=== PATIENT | male | born 1955 | race Caucasian/White ===

== ENCOUNTER 2016-11-28 00:25 | Inpatient (IN) | payer BC ==
[~2016-11-28] VITALS: Ht 177.8 cm; Wt 141.7 kg
[~2016-11-28 00:25] MED LIST: CIPR500T94 PO; OLME1TAB33 PO; TAMS0.4C97 PO
[2016-11-28 03:00] VITALS: BP 117/75
[2016-11-28 03:29] LABS: BACTERIA,URINE FEW /HPF (0-FEW); BILIRUBIN,URINE NEGATIVE (NEG); GLUCOSE,URINE NEGATIVE (NEG); NITRITE,URINE NEGATIVE (NEG); PH,URINE 5.5; PROTEIN,URINE NEGATIVE (NEG-TRACE); SQUAMOUS EPITHELIAL CELL,UR FEW /LPF; WBC,URINE TNTC /HPF (0-4)
[2016-11-28] MEDS ORDERED: TAMS0.4C97 PO (03:46)
[2016-11-28] MEDS ORDERED: POTASSIUM CHLO10 MEQ PO (03:46)
[2016-11-28] MEDS ORDERED: SAW/1TAB2 PO (03:46)
[2016-11-28] MEDS ORDERED: ALLO100T PO (03:46)
[2016-11-28] MEDS ORDERED: METO5TAB4 PO (03:46)
[2016-11-28] MEDS ORDERED: MULT1TAB52 PO (03:46)
[2016-11-28] MEDS ORDERED: FURO40TA4 PO (03:46)
[2016-11-28] MEDS: AMINO AC 3%/ELECTROLYTE/GLYCER 1,000 ML IV SCH (04:05)
[2016-11-28 07:00] VITALS: BP 116/77
[2016-11-28 07:12] LABS: BASO % 0 % (0-3); EOS % 1 % (0-3); HEMATOCRIT 35.9 % (39.0-53.0); HEMOGLOBIN 11.9 g/dL (13.0-17.5); LYMPH # 1.4 x10^3/uL (1.0-4.8); LYMPH % 14 % (24-48); MEAN CORPUSCULAR HEMOGLOBIN 28 pg (25-35); MEAN CORPUSCULAR HGB CONC 33 g/dL (31-37); MEAN CORPUSCULAR VOLUME 84 fL (79-100); MONO % 11 % (0-9); NEUT % 74 % (31-73); PLATELET COUNT 62 x10^3/uL (140-400); RED BLOOD COUNT 4.28 x10^6/uL (4.30-5.70); RED CELL DISTRIBUTION WIDTH 18.4 % (11.5-14.5); WHITE BLOOD COUNT 10.6 x10^3/uL (4.0-11.0)
[2016-11-28 07:25] LABS: INR 2.3 (0.8-1.1); PROTHROMBIN TIME PATIENT 24.1 SEC (11.7-14.0)
[2016-11-28 07:34] LABS: ALBUMIN 2.5 g/dL (3.4-5.0); CALCIUM 8.5 mg/dL (8.5-10.1); CREATININE 2.3 mg/dL (0.7-1.3); DIRECT BILIRUBIN 6.1 mg/dL (0.0-0.2); GFR 29.1; POTASSIUM 3.1 mmol/L (3.5-5.1)
[2016-11-28 08:00] LABS: ALBUMIN/GLOBULIN RATIO 0.6 (1.0-1.7); TOTAL PROTEIN 6.7 g/dL (6.4-8.2)
--- NOTE | 2016-11-28 09:40 | PDOC1 ---
History and Physical Social History Smoke: No ALCOHOL: none Current Medications Current Medications Current Medications Medications (Trade) Dose Ordered Sig/Joann Start Time Stop Time Status Last Admin Dose Admin Amino Acids/ Glycerin/ Electrolytes 1,000 ml @ 50 mls/hr Q20H 11/28/16 03:30 11/28/16 04:05 50 MLS/HR Allergies Allergies Allergies Coded Allergies Type Severity Reaction Last Updated Verified No Known Drug Allergies 02/15/16 No ROS Review of System CONSTITUTIONAL: No fever or chills EYES: No recent changes SKIN: jaundice, itching. CARDIOVASCULAR: No chest pain, syncope, palpitations, or edema RESPIRATORY: No SOB or cough GASTROINTESTINAL: abdominal distension NEUROLOGICAL: No headaches or weakness ENDOCRINE: No cold or heat intolerance GENITOURINARY: No urgency or frequency of urination MUSCULOSKELETAL: No back pain or joint pain LYMPHATICS: No enlarged lymph nodes PSYCHIATRIC: No anxiety or depression Physical Exam Physical Exam GEN.: No apparent distress. Alert and oriented. HEENT: Head is normocephalic, atraumatic, Icterus NECK: Supple. no JVD LUNGS: Clear to auscultation. HEART: RRR, S1, S2 present. Peripheral pulses intact ABDOMEN: Soft, nontender. Positive bowel sounds. distended tense EXTREMITIES: Without any cyanosis. +3 edema NEUROLOGIC: Normal speech, normal tone PSYCHIATRIC: Normal affect, normal mood. SKIN: jaundice, yellowish discoloration Vitals Vitals Vital Signs Date Time Temp Pulse Resp B/P (MAP) Pulse Ox O2 Delivery O2 Flow Rate FiO2 11/28/16 04:59 Room Air 11/28/16 03:00 97.0 98 19 117/75 (89) 94 97.0 Labs Labs Laboratory Tests Test 11/28/16 02:50 11/28/16 06:40 Urine Collection Type Unknown Urine Color Kalani Urine Clarity Clear Urine pH 5.5 Urine Specific [place] 1.010 Urine Protein Negative mg/dL (NEG-TRACE) Urine Glucose (UA) Negative mg/dL (NEG) Urine Ketones (Stick) Negative mg/dL (NEG) Urine Blood Small (NEG) Urine Nitrite Negative (NEG) Urine Bilirubin Negative (NEG) Urine Urobilinogen Dipstick 1.0 mg/dL (0.2 mg/dL) Urine Leukocyte Esterase Moderate (NEG) Urine RBC 11-20 /HPF (0-2) Urine WBC Tntc /HPF (0-4) Urine Squamous Epithelial Cells Few /LPF Urine Bacteria Few /HPF (0-FEW) Urine Hyaline Casts Many /HPF Urine Mucus Slight /LPF White Blood Count 10.6 x10^3/uL (4.0-11.0) Red Blood Count 4.28 x10^6/uL (4.30-5.70) Hemoglobin 11.9 g/dL (13.0-17.5) Hematocrit 35.9 % (39.0-53.0) Mean Corpuscular Volume 84 fL (79-100) Mean Corpuscular Hemoglobin 28 pg (25-35) Mean Corpuscular Hemoglobin Concent 33 g/dL (31-37) Red Cell Distribution Width 18.4 % (11.5-14.5) Platelet Count 62 x10^3/uL (140-400) Neutrophils (%) (Auto) 74 % (31-73) Lymphocytes (%) (Auto) 14 % (24-48) Monocytes (%) (Auto) 11 % (0-9) Eosinophils (%) (Auto) 1 % (0-3) Basophils (%) (Auto) 0 % (0-3) Neutrophils # (Auto) 7.8 x10^3uL (1.8-7.7) Lymphocytes # (Auto) 1.4 x10^3/uL (1.0-4.8) Monocytes # (Auto) 1.2 x10^3/uL (0.0-1.1) Eosinophils # (Auto) 0.1 x10^3/uL (0.0-0.7) Basophils # (Auto) 0.0 x10^3/uL (0.0-0.2) Prothrombin Time 24.1 SEC (11.7-14.0) Prothromb Time International Ratio 2.3 (0.8-1.1) Activated Partial Thromboplast Time 41 SEC (24-38) Sodium Level 128 mmol/L (136-145) Potassium Level 3.1 mmol/L (3.5-5.1) Chloride Level 91 mmol/L (98-107) Carbon Dioxide Level 24 mmol/L (21-32) Anion Gap 13 (6-14) Blood Urea Nitrogen 58 mg/dL (8-26) Creatinine 2.3 mg/dL (0.7-1.3) Estimated GFR (Cockcroft-Gault) 29.1 BUN/Creatinine Ratio 25 (6-20) Glucose Level 93 mg/dL (70-99) Calcium Level 8.5 mg/dL (8.5-10.1) Total Bilirubin 8.0 mg/dL (0.2-1.0) Direct Bilirubin 6.1 mg/dL (0.0-0.2) Aspartate Amino Transf (AST/SGOT) 177 U/L (15-37) Alanine Aminotransferase (ALT/SGPT) 47 U/L (16-63) Alkaline Phosphatase 138 U/L (46-116) Total Protein 6.7 g/dL (6.4-8.2) Albumin 2.5 g/dL (3.4-5.0) Albumin/Globulin Ratio 0.6 (1.0-1.7) Laboratory Tests Test 11/28/16 02:50 11/28/16 06:40 Urine Collection Type Unknown Urine Color Kalani Urine Clarity Clear Urine pH 5.5 Urine Specific [place] 1.010 Urine Protein Negative mg/dL (NEG-TRACE) Urine Glucose (UA) Negative mg/dL (NEG) Urine Ketones (Stick) Negative mg/dL (NEG) Urine Blood Small (NEG) Urine Nitrite Negative (NEG) Urine Bilirubin Negative (NEG) Urine Urobilinogen Dipstick 1.0 mg/dL (0.2 mg/dL) Urine Leukocyte Esterase Moderate (NEG) Urine RBC 11-20 /HPF (0-2) Urine WBC Tntc /HPF (0-4) Urine Squamous Epithelial Cells Few /LPF Urine Bacteria Few /HPF (0-FEW) Urine Hyaline Casts Many /HPF Urine Mucus Slight /LPF White Blood Count 10.6 x10^3/uL (4.0-11.0) Red Blood Count 4.28 x10^6/uL (4.30-5.70) Hemoglobin 11.9 g/dL (13.0-17.5) Hematocrit 35.9 % (39.0-53.0) Mean Corpuscular Volume 84 fL (79-100) Mean Corpuscular Hemoglobin 28 pg (25-35) Mean Corpuscular Hemoglobin Concent 33 g/dL (31-37) Red Cell Distribution Width 18.4 % (11.5-14.5) Platelet Count 62 x10^3/uL (140-400) Neutrophils (%) (Auto) 74 % (31-73) Lymphocytes (%) (Auto) 14 % (24-48) Monocytes (%) (Auto) 11 % (0-9) Eosinophils (%) (Auto) 1 % (0-3) Basophils (%) (Auto) 0 % (0-3) Neutrophils # (Auto) 7.8 x10^3uL (1.8-7.7) Lymphocytes # (Auto) 1.4 x10^3/uL (1.0-4.8) Monocytes # (Auto) 1.2 x10^3/uL (0.0-1.1) Eosinophils # (Auto) 0.1 x10^3/uL (0.0-0.7) Basophils # (Auto) 0.0 x10^3/uL (0.0-0.2) Prothrombin Time 24.1 SEC (11.7-14.0) Prothromb Time International Ratio 2.3 (0.8-1.1) Activated Partial Thromboplast Time 41 SEC (24-38) Sodium Level 128 mmol/L (136-145) Potassium Level 3.1 mmol/L (3.5-5.1) Chloride Level 91 mmol/L (98-107) Carbon Dioxide Level 24 mmol/L (21-32) Anion Gap 13 (6-14) Blood Urea Nitrogen 58 mg/dL (8-26) Creatinine 2.3 mg/dL (0.7-1.3) Estimated GFR (Cockcroft-Gault) 29.1 BUN/Creatinine Ratio 25 (6-20) Glucose Level 93 mg/dL (70-99) Calcium Level 8.5 mg/dL (8.5-10.1) Total Bilirubin 8.0 mg/dL (0.2-1.0) Direct Bilirubin 6.1 mg/dL (0.0-0.2) Aspartate Amino Transf (AST/SGOT) 177 U/L (15-37) Alanine Aminotransferase (ALT/SGPT) 47 U/L (16-63) Alkaline Phosphatase 138 U/L (46-116) Total Protein 6.7 g/dL (6.4-8.2) Albumin 2.5 g/dL (3.4-5.0) Albumin/Globulin Ratio 0.6 (1.0-1.7) VTE Prophylaxis Ordered VTE Prophylaxis Devices: Contraindicated VTE Pharmacological Prophylaxi: Contraindicated PATRICIA CASTAÑEDA MD November 28, 2016 09:40
--- NOTE | 2016-11-28 10:58 | PDOC2 ---
GI CONSULT Reason For Consult: Acute liver failure HPI: HPI: 61 y/o male transferred from [facility] where he was evaluated for jaundice which he noticed yesterday. In 09/2015 had a urologic procedure (Dr. Ayoub) for urethral stricture following TURP several years prior (for BPH), complicated by acute renal failure followed by Dr. Beverly. S/p kidney biopsy @ [facility] (says benign). Also some reports of elevated INR and low platelets. Has been on Lasix for abdominal and BLE swelling w/ SOA. Denies h/o liver issues. Note previous CT A/ P w/o contrast from 01/2016 which showed nodular contour of liver. Current labs as below, bili 8, plt 62, INR 2.3. Denies n/v, reflux/heartburn, dysphagia, diarrhea, constipation, hematochezia, melena, change in appetite. Recalls previous EGDs and colonoscopies in [place] as normal. PMH: PMH: per HPI FH: Family History: No pertinent hx Social History: Smoke: No ALCOHOL: rare (drank some in his 20s and 30s, since then has about a 6 pack of beer monthly) ROS: GEN: Denies fevers, chills, sweats HEENT: Denies blurred vision, sore throat CV: Denies chest pain RESP: +SOA GI: Per HPI : Denies hematuria, dysuria ENDO: +weight gain NEURO: Denies confusion, dizziness MSK: Denies weakness, joint pain/swelling SKIN: +jaundice Vitals: Vitals: Vital Signs Date Time Temp Pulse Resp B/P (MAP) Pulse Ox O2 Delivery O2 Flow Rate FiO2 11/28/16 08:00 Room Air 11/28/16 07:00 97.7 95 20 116/77 (90) 94 97.7 Labs: Labs: Laboratory Tests Test 11/28/16 02:50 11/28/16 06:40 Urine Collection Type Unknown Urine Color Kalani Urine Clarity Clear Urine pH 5.5 Urine Specific [place] 1.010 Urine Protein Negative mg/dL (NEG-TRACE) Urine Glucose (UA) Negative mg/dL (NEG) Urine Ketones (Stick) Negative mg/dL (NEG) Urine Blood Small (NEG) Urine Nitrite Negative (NEG) Urine Bilirubin Negative (NEG) Urine Urobilinogen Dipstick 1.0 mg/dL (0.2 mg/dL) Urine Leukocyte Esterase Moderate (NEG) Urine RBC 11-20 /HPF (0-2) Urine WBC Tntc /HPF (0-4) Urine Squamous Epithelial Cells Few /LPF Urine Bacteria Few /HPF (0-FEW) Urine Hyaline Casts Many /HPF Urine Mucus Slight /LPF White Blood Count 10.6 x10^3/uL (4.0-11.0) Red Blood Count 4.28 x10^6/uL (4.30-5.70) Hemoglobin 11.9 g/dL (13.0-17.5) Hematocrit 35.9 % (39.0-53.0) Mean Corpuscular Volume 84 fL (79-100) Mean Corpuscular Hemoglobin 28 pg (25-35) Mean Corpuscular Hemoglobin Concent 33 g/dL (31-37) Red Cell Distribution Width 18.4 % (11.5-14.5) Platelet Count 62 x10^3/uL (140-400) Neutrophils (%) (Auto) 74 % (31-73) Lymphocytes (%) (Auto) 14 % (24-48) Monocytes (%) (Auto) 11 % (0-9) Eosinophils (%) (Auto) 1 % (0-3) Basophils (%) (Auto) 0 % (0-3) Neutrophils # (Auto) 7.8 x10^3uL (1.8-7.7) Lymphocytes # (Auto) 1.4 x10^3/uL (1.0-4.8) Monocytes # (Auto) 1.2 x10^3/uL (0.0-1.1) Eosinophils # (Auto) 0.1 x10^3/uL (0.0-0.7) Basophils # (Auto) 0.0 x10^3/uL (0.0-0.2) Prothrombin Time 24.1 SEC (11.7-14.0) Prothromb Time International Ratio 2.3 (0.8-1.1) Activated Partial Thromboplast Time 41 SEC (24-38) Sodium Level 128 mmol/L (136-145) Potassium Level 3.1 mmol/L (3.5-5.1) Chloride Level 91 mmol/L (98-107) Carbon Dioxide Level 24 mmol/L (21-32) Anion Gap 13 (6-14) Blood Urea Nitrogen 58 mg/dL (8-26) Creatinine 2.3 mg/dL (0.7-1.3) Estimated GFR (Cockcroft-Gault) 29.1 BUN/Creatinine Ratio 25 (6-20) Glucose Level 93 mg/dL (70-99) Calcium Level 8.5 mg/dL (8.5-10.1) Total Bilirubin 8.0 mg/dL (0.2-1.0) Direct Bilirubin 6.1 mg/dL (0.0-0.2) Aspartate Amino Transf (AST/SGOT) 177 U/L (15-37) Alanine Aminotransferase (ALT/SGPT) 47 U/L (16-63) Alkaline Phosphatase 138 U/L (46-116) Total Protein 6.7 g/dL (6.4-8.2) Albumin 2.5 g/dL (3.4-5.0) Albumin/Globulin Ratio 0.6 (1.0-1.7) Allergies: Coded Allergies: No Known Drug Allergies (Unverified , 02/15/16) Medications: Current Medications Medications (Trade) Dose Ordered Sig/Joann Route PRN Reason Start Time Stop Time Status Last Admin Dose Admin Amino Acids/ Glycerin/ Electrolytes 1,000 ml @ 50 mls/hr Q20H IV 11/28/16 03:30 11/28/16 04:05 Imaging: Imaging: - PE: GEN: NAD HEENT: Atraumatic, PERRL LUNGS: CTAB HEART: RRR ABD: distended/tight, ascites EXTREMITY: BLE 2+ pitting edema SKIN: +jaundice NEURO/PSYCH: A & O 3 A/P: A/P: Jaundice, abd distention, BLE edema -jaundice noticed yesterday, bili 8 as above -h/o elevated INR and low plt, present here as well -abd distention and BLE swelling bothersome since urologic procedure complicated w/ kidney issues in 09/2016, has been on Lasix -previous CT from 01/2016 suggest nodular contour of liver ANTIONE -- Check Hep panel. Will also ask for abd US (r/o obstruction, check ascites) and abd doppler (?portal hypertension). JULIANA RIOS November 28, 2016 10:58
[2016-11-28 11:00] VITALS: BP 118/84
[2016-11-28] MEDS ORDERED: POTASSIUM CHLORIDE 20 MEQ TABLET.ER. PO ONE ×2 (11:30→16:15)
--- NOTE | 2016-11-28 12:21 | HP ---
ADMIT DATE: 11/28/2016 CHIEF COMPLAINT: Weight gain and jaundice. HISTORY OF PRESENT ILLNESS: A 61-year-old male patient with recent history of acute kidney injury who had a prolonged hospitalization at [facility] presented to the hospital directly admitted from primary care doctor's office from jaundice and worsening liver functions. Reportedly, the patient was admitted to the [facility] in early September for hematuria. At that time, he had a urethral stricture and had TURP. Postsurgery, his hospital course was complicated due to acute renal failure. He had a renal biopsy which showed ATN as per primary care doctor. The patient was discharged home and again readmitted to the hospital for worsening liver function tests. He has been admitted to [facility], and workup such as liver ultrasound showed fatty liver disease, and he was sent home with Lasix. However, the patient continued to have lower extremity swellings, abdominal distension, and jaundice. Recently, his liver functions, total bilirubin was 4, but today his bilirubin was 8 with icterus and worsening INR. PAST MEDICAL HISTORY: ATN and elevated liver function test. FAMILY HISTORY: No liver cancers or GI cancers. PERSONAL HISTORY: Occasionally drinks. No smoking, no drug abuse. REVIEW OF SYSTEMS: Please see my electronic H and P. PHYSICAL EXAMINATION: Please see my electronic H and P. ALLERGIES: NKDA. LABORATORY DATA: Hematology: WBC 10.6, hemoglobin 11.9, MCV is 84, platelets 62 and lymphocytes 11. Chemistry: Sodium is 128, potassium is 3.1, chloride is 91, carbon dioxide is 24, anion gap is 13, BUN is 58, creatinine 2.0, GFR is 29, and glucose is 93. Total bilirubin 8.0, direct bilirubin is 6.1. AST is 177, ALT is 47, alkaline phosphatase is 138. Coagulation panel: INR is 2.3, PTT 41. Urine: Protein is negative, ketones negative, nitrites negative, leukocyte esterase moderate, bacteria a few, and hyaline casts many. IMAGING STUDIES: Not done. ASSESSMENT AND PLAN: 1. Elevated liver enzymes, with Cirrhosis POA 2. Jaundice, obstructive pattern. 3. Acute renal failure. 4. Hypokalemia with potassium 3.1. 5. Thrombocytopenia. 6. Coagulopathy likely due to liver disease. PLAN: 1. Continue IV Lasix for now and restrict to volume intake to 1500 mL and repeat CBC and CMP in a.m. 2. I did discuss with Dr. Landers, He will see him. Also consult Gastroenterology, Dr. Lei. 3. I did discuss, primary care doctor. We will update him at DC 4. No DVT prophylaxis due to thrombocytopenia and elevated INR. 5. Prognosis is guarded. Plan explained to the patient's daughter. They agree with current management. 4. Abdominal ultrasound is pending. 5. Home medication reviewed, 6. Intake and out put 7. Physical therapy PATRICIA CASTAÑEDA MD DR: MARSHA/екатерина JOB#: [id number] / [id number] EDGARDO
[2016-11-28] MEDS: metOLazone 2.5 MG TABLET PO SCH ×2 (12:30→16:58)
[2016-11-28] MEDS ORDERED: FUROSEMIDE 40 MG TABLET. PO SCH (12:30)
[2016-11-28] MEDS: TAMSULOSIN 0.4 MG CAP.ER.24H. PO SCH ×2 (12:30→21:30)
[2016-11-28] MEDS: POTASSIUM CHLORIDE 10 MEQ TABLET.ER. PO SCH ×2 (12:30→16:57)
[2016-11-28 15:00] VITALS: BP 90/57
--- NOTE | 2016-11-28 15:35 | RAD ---
Indication: Jaundice. The study is limited by overlying bowel gas and patient body habitus. The pancreas and aorta are obscured. The liver has a nodular contour. The liver parenchyma is heterogeneous. No discrete liver mass is identified. The gallbladder does contain moderate sludge. No gallstones are seen. No wall thickening is identified. The spleen is enlarged at 13 cm. Kidneys are unremarkable. No definite identifiable flow within the portal vein or the IVC is seen at the level of the liver. Thrombosis cannot be entirely excluded. There is moderate ascites present. Impression: Limited study due to patient body habitus and overlying bowel gas. The liver is heterogeneous and nodular, perhaps owing to cirrhosis. No discrete liver mass is identified. There is splenomegaly. In addition, no definite flow could be seen within the portal vein or within the upper IVC. Thrombosis cannot be entirely excluded. CT with contrast would be useful for further evaluation.
[2016-11-28] MEDS: MULTIVITAMIN with MINERAL TABLET. PO SCH (16:57)
[2016-11-28] MEDS: ALLOPURINOL 100 MG TABLET. PO SCH (16:57)
[2016-11-28] MEDS: ALBUMIN HUMAN 25% 200 ML IV SCH (17:00)
[2016-11-28] MEDS: oxyCODONE/APAP 5/325 1 TAB TABLET PO PRN (17:59)
[2016-11-28] MEDS: FUROSEMIDE 20 MG/2 ML VIAL. IVP SCH (18:00)
[2016-11-28 19:00] VITALS: BP 89/61
[2016-11-28 23:00] VITALS: BP 110/70
[2016-11-29] VITALS (8 sets, daily range): BP systolic 92–117; BP diastolic 63–79
[2016-11-29] MEDS: FUROSEMIDE 20 MG/2 ML VIAL. IVP SCH ×4 (00:16→17:41)
[2016-11-29] MEDS: AMINO AC 3%/ELECTROLYTE/GLYCER 1,000 ML IV SCH (00:17)
[2016-11-29] MEDS: oxyCODONE/APAP 5/325 1 TAB TABLET PO PRN ×2 (02:35→12:27)
[2016-11-29] MEDS: ALBUMIN HUMAN 25% 200 ML IV SCH ×2 (03:37→15:30)
[2016-11-29 07:53] LABS: BASO % 0 % (0-3); EOS % 0 % (0-3); HEMOGLOBIN 10.2 g/dL (13.0-17.5); LYMPH # 1.4 x10^3/uL (1.0-4.8); LYMPH % 12 % (24-48); MEAN CORPUSCULAR HEMOGLOBIN 28 pg (25-35); MEAN CORPUSCULAR HGB CONC 34 g/dL (31-37); MEAN CORPUSCULAR VOLUME 83 fL (79-100); MONO % 11 % (0-9); NEUT % 77 % (31-73); PLATELET COUNT 58 x10^3/uL (140-400); RED CELL DISTRIBUTION WIDTH 19.1 % (11.5-14.5); WHITE BLOOD COUNT 11.4 x10^3/uL (4.0-11.0)
[2016-11-29 08:06] LABS: ALBUMIN 3.3 g/dL (3.4-5.0); ALBUMIN/GLOBULIN RATIO 0.9 (1.0-1.7); CALCIUM 8.7 mg/dL (8.5-10.1); CREATININE 2.3 mg/dL (0.7-1.3); GFR 29.1; POTASSIUM 3.6 mmol/L (3.5-5.1); TOTAL BILIRUBIN 9.7 mg/dL (0.2-1.0)
[2016-11-29] MEDS: metOLazone 2.5 MG TABLET PO SCH (08:26)
[2016-11-29] MEDS: ALLOPURINOL 100 MG TABLET. PO SCH (08:30)
[2016-11-29] MEDS: POTASSIUM CHLORIDE 10 MEQ TABLET.ER. PO SCH ×2 (08:30→15:30)
[2016-11-29] MEDS: TAMSULOSIN 0.4 MG CAP.ER.24H. PO SCH ×2 (08:30→20:58)
[2016-11-29] MEDS: MULTIVITAMIN with MINERAL TABLET. PO SCH (08:30)
[2016-11-29 08:34] LABS: TOTAL PROTEIN 6.9 g/dL (6.4-8.2)
--- NOTE | 2016-11-29 10:30 | PDOC ---
G I PROGRESS NOTE Subjective No new complaints. Physical Exam Lungs clear. RRR Abdomen with ascites. Anasarca persists. Review of Relevant I have reviewed the following items rufina (where applicable) has been applied. Labs Laboratory Tests Test 11/28/16 02:50 11/28/16 06:40 11/29/16 07:15 Urine Collection Type Unknown Urine Color Kalani Urine Clarity Clear Urine pH 5.5 Urine Specific [place] 1.010 Urine Protein Negative mg/dL (NEG-TRACE) Urine Glucose (UA) Negative mg/dL (NEG) Urine Ketones (Stick) Negative mg/dL (NEG) Urine Blood Small (NEG) Urine Nitrite Negative (NEG) Urine Bilirubin Negative (NEG) Urine Urobilinogen Dipstick 1.0 mg/dL (0.2 mg/dL) Urine Leukocyte Esterase Moderate (NEG) Urine RBC 11-20 /HPF (0-2) Urine WBC Tntc /HPF (0-4) Urine Squamous Epithelial Cells Few /LPF Urine Bacteria Few /HPF (0-FEW) Urine Hyaline Casts Many /HPF Urine Mucus Slight /LPF White Blood Count 10.6 x10^3/uL (4.0-11.0) 11.4 x10^3/uL (4.0-11.0) Red Blood Count 4.28 x10^6/uL (4.30-5.70) 3.60 x10^6/uL (4.30-5.70) Hemoglobin 11.9 g/dL (13.0-17.5) 10.2 g/dL (13.0-17.5) Hematocrit 35.9 % (39.0-53.0) 30.0 % (39.0-53.0) Mean Corpuscular Volume 84 fL (79-100) 83 fL (79-100) Mean Corpuscular Hemoglobin 28 pg (25-35) 28 pg (25-35) Mean Corpuscular Hemoglobin Concent 33 g/dL (31-37) 34 g/dL (31-37) Red Cell Distribution Width 18.4 % (11.5-14.5) 19.1 % (11.5-14.5) Platelet Count 62 x10^3/uL (140-400) 58 x10^3/uL (140-400) Neutrophils (%) (Auto) 74 % (31-73) 77 % (31-73) Lymphocytes (%) (Auto) 14 % (24-48) 12 % (24-48) Monocytes (%) (Auto) 11 % (0-9) 11 % (0-9) Eosinophils (%) (Auto) 1 % (0-3) 0 % (0-3) Basophils (%) (Auto) 0 % (0-3) 0 % (0-3) Neutrophils # (Auto) 7.8 x10^3uL (1.8-7.7) 8.7 x10^3uL (1.8-7.7) Lymphocytes # (Auto) 1.4 x10^3/uL (1.0-4.8) 1.4 x10^3/uL (1.0-4.8) Monocytes # (Auto) 1.2 x10^3/uL (0.0-1.1) 1.2 x10^3/uL (0.0-1.1) Eosinophils # (Auto) 0.1 x10^3/uL (0.0-0.7) 0.0 x10^3/uL (0.0-0.7) Basophils # (Auto) 0.0 x10^3/uL (0.0-0.2) 0.0 x10^3/uL (0.0-0.2) Prothrombin Time 24.1 SEC (11.7-14.0) Prothromb Time International Ratio 2.3 (0.8-1.1) Activated Partial Thromboplast Time 41 SEC (24-38) Sodium Level 128 mmol/L (136-145) 127 mmol/L (136-145) Potassium Level 3.1 mmol/L (3.5-5.1) 3.6 mmol/L (3.5-5.1) Chloride Level 91 mmol/L (98-107) 91 mmol/L (98-107) Carbon Dioxide Level 24 mmol/L (21-32) 21 mmol/L (21-32) Anion Gap 13 (6-14) 15 (6-14) Blood Urea Nitrogen 58 mg/dL (8-26) 67 mg/dL (8-26) Creatinine 2.3 mg/dL (0.7-1.3) 2.3 mg/dL (0.7-1.3) Estimated GFR (Cockcroft-Gault) 29.1 29.1 BUN/Creatinine Ratio 25 (6-20) 29 (6-20) Glucose Level 93 mg/dL (70-99) 93 mg/dL (70-99) Calcium Level 8.5 mg/dL (8.5-10.1) 8.7 mg/dL (8.5-10.1) Total Bilirubin 8.0 mg/dL (0.2-1.0) 9.7 mg/dL (0.2-1.0) Direct Bilirubin 6.1 mg/dL (0.0-0.2) Aspartate Amino Transf (AST/SGOT) 177 U/L (15-37) 157 U/L (15-37) Alanine Aminotransferase (ALT/SGPT) 47 U/L (16-63) 41 U/L (16-63) Alkaline Phosphatase 138 U/L (46-116) 108 U/L (46-116) Total Protein 6.7 g/dL (6.4-8.2) 6.9 g/dL (6.4-8.2) Albumin 2.5 g/dL (3.4-5.0) 3.3 g/dL (3.4-5.0) Albumin/Globulin Ratio 0.6 (1.0-1.7) 0.9 (1.0-1.7) Laboratory Tests Test 11/29/16 07:15 White Blood Count 11.4 x10^3/uL (4.0-11.0) Red Blood Count 3.60 x10^6/uL (4.30-5.70) Hemoglobin 10.2 g/dL (13.0-17.5) Hematocrit 30.0 % (39.0-53.0) Mean Corpuscular Volume 83 fL (79-100) Mean Corpuscular Hemoglobin 28 pg (25-35) Mean Corpuscular Hemoglobin Concent 34 g/dL (31-37) Red Cell Distribution Width 19.1 % (11.5-14.5) Platelet Count 58 x10^3/uL (140-400) Neutrophils (%) (Auto) 77 % (31-73) Lymphocytes (%) (Auto) 12 % (24-48) Monocytes (%) (Auto) 11 % (0-9) Eosinophils (%) (Auto) 0 % (0-3) Basophils (%) (Auto) 0 % (0-3) Neutrophils # (Auto) 8.7 x10^3uL (1.8-7.7) Lymphocytes # (Auto) 1.4 x10^3/uL (1.0-4.8) Monocytes # (Auto) 1.2 x10^3/uL (0.0-1.1) Eosinophils # (Auto) 0.0 x10^3/uL (0.0-0.7) Basophils # (Auto) 0.0 x10^3/uL (0.0-0.2) Sodium Level 127 mmol/L (136-145) Potassium Level 3.6 mmol/L (3.5-5.1) Chloride Level 91 mmol/L (98-107) Carbon Dioxide Level 21 mmol/L (21-32) Anion Gap 15 (6-14) Blood Urea Nitrogen 67 mg/dL (8-26) Creatinine 2.3 mg/dL (0.7-1.3) Estimated GFR (Cockcroft-Gault) 29.1 BUN/Creatinine Ratio 29 (6-20) Glucose Level 93 mg/dL (70-99) Calcium Level 8.7 mg/dL (8.5-10.1) Total Bilirubin 9.7 mg/dL (0.2-1.0) Aspartate Amino Transf (AST/SGOT) 157 U/L (15-37) Alanine Aminotransferase (ALT/SGPT) 41 U/L (16-63) Alkaline Phosphatase 108 U/L (46-116) Total Protein 6.9 g/dL (6.4-8.2) Albumin 3.3 g/dL (3.4-5.0) Albumin/Globulin Ratio 0.9 (1.0-1.7) Medications Current Medications Amino Acids/ Glycerin/ Electrolytes 1,000 ml @ 50 mls/hr Q20H IV Last administered on 11/29/16 00:17; Start 11/28/16 at 03:30 Potassium Chloride (Klor-Con) 40 meq 1X ONCE PO ; Start 11/28/16 at 11:30; Stop 11/28/16 at 16:14; Status DC Allopurinol (Zyloprim) 100 mg DAILY PO Last administered on 11/29/16 08:30; Start 11/28/16 at 12:30 Furosemide (Lasix) 40 mg [id number] PO ; Start 11/28/16 at 12:30; Stop 11/28/16 at 15: 47; Status DC Tamsulosin HCl (Flomax) 0.4 mg BID PO Last administered on 11/29/16 08:30; Start 11/28/16 at 12:30 Metolazone (Zaroxolyn) 5 mg DAILY PO ; Start 11/28/16 at 12:30 Multivitamins (Thera M Plus) 1 tab DAILY PO Last administered on 11/29/16 08: 30; Start 11/28/16 at 12:30 Potassium Chloride (Klor-Con) 10 meq BID94 PO Last administered on 11/29/16 08 :30; Start 11/28/16 at 12:30 Furosemide (Lasix) 20 mg Q6HRS IVP Last administered on 11/29/16 06:15; Start 11/28/16 at 18:00 Albumin Human 200 ml @ 100 mls/hr Q12H IV Last administered on 11/29/16 03:37 ; Start 11/28/16 at 16:00 Potassium Chloride (Klor-Con) 40 meq 1X ONCE PO Last administered on 11/28/16 16:57; Start 11/28/16 at 16:15; Stop 11/28/16 at 16:16; Status DC Oxycodone/ Acetaminophen (Percocet 5/325) 1 tab PRN Q8HRS PRN PO PAIN Last administered on 11/29/16 02:35; Start 11/28/16 at 17:45 Active Scripts Active Cipro (Ciprofloxacin Hcl) 500 Mg Tablet 500 Mg PO BID 7 Days Reported Multivitamins (Multivitamin) 1 Each Tablet 1 Tab PO DAILY Prostate Health Caplet (Saw/Vit E/Sod Ashwini/Lyc/Beta/Pyg) 1 Each Tablet 1 Each PO BID Flomax (Tamsulosin Hcl) 0.4 Mg Cap.er.24h 0.4 Mg PO BID Allopurinol 100 Mg Tablet 1 Tab PO DAILY Metolazone 5 Mg Tablet 5 Mg PO DAILY Furosemide 40 Mg Tablet 40 Mg PO BID Potassium Chloride 10 Meq Capsule.er 10 Meq PO BID Flomax (Tamsulosin Hcl) 0.4 Mg Cap.er.24h 0.8 Mg PO HS Tribenzor 40-10-12.5 Mg Tablet (Olmesartan/Amlodipin/Hcthiazid) 1 Each Tablet 1 Each PO DAILY Vitals/I & O Vital Sign - Last 24 Hours 11/28/16 11/28/16 11/28/16 11/28/16 11:00 15:00 17:59 19:00 Temp 97.6 97.9 98.1 97.6 97.9 98.1 Pulse 93 98 103 Resp 19 19 20 B/P (MAP) 118/84 (95) 90/57 (68) 89/61 (70) Pulse Ox 93 91 90 O2 Delivery Room Air Room Air Room Air Room Air 11/28/16 11/28/16 11/29/16 11/29/16 20:15 23:00 02:35 03:00 Temp 98.2 97.9 98.2 97.9 Pulse 101 103 Resp 20 20 20 B/P (MAP) 110/70 (83) 102/68 (79) Pulse Ox 98 93 97 O2 Delivery Room Air Room Air Room Air Room Air 11/29/16 11/29/16 11/29/16 11/29/16 03:45 06:16 07:11 08:00 Temp 97.5 97.5 Pulse 95 95 Resp 18 20 B/P (MAP) 106/79 (88) 106/79 (88) Pulse Ox 94 92 O2 Delivery Room Air Nasal Cannula Room Air O2 Flow Rate 2.0 11/29/16 08:11 Temp 97.9 97.9 Pulse 94 Resp 17 B/P (MAP) 99/68 (78) Pulse Ox 93 O2 Delivery Room Air Intake and Output 11/28/16 11/28/16 11/29/16 15:00 23:00 07:00 Intake Total 100 ml 200 ml Output Total 1400 ml 600 ml Balance -1300 ml -400 ml Images On sonogram: Impression: Limited study due to patient body habitus and overlying bowel gas. The liver is heterogeneous and nodular, perhaps owing to cirrhosis. No discrete liver mass is identified. There is splenomegaly. In addition, no definite flow could be seen within the portal vein or within the upper IVC. Thrombosis cannot be entirely excluded. CT with contrast would be useful for further evaluation. Assessment Chronic liver disease, clinically cirrhotic, with ascites, anasarca. PV thrombosis? Due to renal disease, unable to do CT or MRI with contrast. Seems likely, though. Drug hepatotoxicity? Plan of Care: Continue current Tx, Mgmt Plan of Care Note Await renal opinion; discussed possibility of albumin/lasix and stopping metolazone with Dr. Landers yesterday. Consider hematology opinion re: possible PV thrombosis. AMRIK ARANGO MD November 29, 2016 10:30
--- NOTE | 2016-11-29 10:42 | PDOC ---
PROGRESS NOTES Chief Complaint Chief Complaint cc: sob and leg swellings 1. 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 Jaundice, obstructive pattern. 3. Acute renal failure. 4. Hypokalemia 5. Thrombocytopenia. 6. Coagulopathy likely due to liver disease. Plan ?portal venin thrombosis, consult oncology IV diuresis with albumin DC Metolazone Aldactone replace electrolyses worsening renal functions PT/OT intake and out put GI and renal following Prognosis guarded, d/w Dr king labs reviewed. fluid restriction 1.5 l Vitals Vitals Vital Signs Date Time Temp Pulse Resp B/P (MAP) Pulse Ox O2 Delivery O2 Flow Rate FiO2 11/29/16 08:11 97.9 94 17 99/68 (78) 93 Room Air 97.9 11/29/16 06:16 2.0 Physical Exam General: Alert, Oriented X3 Heart: Normal S1, Normal S2 Lungs: Clear Abdomen: Other (tense and distended) Extremities: Other Skin: No breakdown Labs LABS Laboratory Tests Test 11/29/16 07:15 White Blood Count 11.4 x10^3/uL (4.0-11.0) Red Blood Count 3.60 x10^6/uL (4.30-5.70) Hemoglobin 10.2 g/dL (13.0-17.5) Hematocrit 30.0 % (39.0-53.0) Mean Corpuscular Volume 83 fL (79-100) Mean Corpuscular Hemoglobin 28 pg (25-35) Mean Corpuscular Hemoglobin Concent 34 g/dL (31-37) Red Cell Distribution Width 19.1 % (11.5-14.5) Platelet Count 58 x10^3/uL (140-400) Neutrophils (%) (Auto) 77 % (31-73) Lymphocytes (%) (Auto) 12 % (24-48) Monocytes (%) (Auto) 11 % (0-9) Eosinophils (%) (Auto) 0 % (0-3) Basophils (%) (Auto) 0 % (0-3) Neutrophils # (Auto) 8.7 x10^3uL (1.8-7.7) Lymphocytes # (Auto) 1.4 x10^3/uL (1.0-4.8) Monocytes # (Auto) 1.2 x10^3/uL (0.0-1.1) Eosinophils # (Auto) 0.0 x10^3/uL (0.0-0.7) Basophils # (Auto) 0.0 x10^3/uL (0.0-0.2) Sodium Level 127 mmol/L (136-145) Potassium Level 3.6 mmol/L (3.5-5.1) Chloride Level 91 mmol/L (98-107) Carbon Dioxide Level 21 mmol/L (21-32) Anion Gap 15 (6-14) Blood Urea Nitrogen 67 mg/dL (8-26) Creatinine 2.3 mg/dL (0.7-1.3) Estimated GFR (Cockcroft-Gault) 29.1 BUN/Creatinine Ratio 29 (6-20) Glucose Level 93 mg/dL (70-99) Calcium Level 8.7 mg/dL (8.5-10.1) Total Bilirubin 9.7 mg/dL (0.2-1.0) Aspartate Amino Transf (AST/SGOT) 157 U/L (15-37) Alanine Aminotransferase (ALT/SGPT) 41 U/L (16-63) Alkaline Phosphatase 108 U/L (46-116) Total Protein 6.9 g/dL (6.4-8.2) Albumin 3.3 g/dL (3.4-5.0) Albumin/Globulin Ratio 0.9 (1.0-1.7) Comment Review of Relevant I have reviewed the following items rufina (where applicable) has been applied. Labs Laboratory Tests Test 11/28/16 02:50 11/28/16 06:40 11/29/16 07:15 Urine Collection Type Unknown Urine Color Kalani Urine Clarity Clear Urine pH 5.5 Urine Specific [place] 1.010 Urine Protein Negative mg/dL (NEG-TRACE) Urine Glucose (UA) Negative mg/dL (NEG) Urine Ketones (Stick) Negative mg/dL (NEG) Urine Blood Small (NEG) Urine Nitrite Negative (NEG) Urine Bilirubin Negative (NEG) Urine Urobilinogen Dipstick 1.0 mg/dL (0.2 mg/dL) Urine Leukocyte Esterase Moderate (NEG) Urine RBC 11-20 /HPF (0-2) Urine WBC Tntc /HPF (0-4) Urine Squamous Epithelial Cells Few /LPF Urine Bacteria Few /HPF (0-FEW) Urine Hyaline Casts Many /HPF Urine Mucus Slight /LPF White Blood Count 10.6 x10^3/uL (4.0-11.0) 11.4 x10^3/uL (4.0-11.0) Red Blood Count 4.28 x10^6/uL (4.30-5.70) 3.60 x10^6/uL (4.30-5.70) Hemoglobin 11.9 g/dL (13.0-17.5) 10.2 g/dL (13.0-17.5) Hematocrit 35.9 % (39.0-53.0) 30.0 % (39.0-53.0) Mean Corpuscular Volume 84 fL (79-100) 83 fL (79-100) Mean Corpuscular Hemoglobin 28 pg (25-35) 28 pg (25-35) Mean Corpuscular Hemoglobin Concent 33 g/dL (31-37) 34 g/dL (31-37) Red Cell Distribution Width 18.4 % (11.5-14.5) 19.1 % (11.5-14.5) Platelet Count 62 x10^3/uL (140-400) 58 x10^3/uL (140-400) Neutrophils (%) (Auto) 74 % (31-73) 77 % (31-73) Lymphocytes (%) (Auto) 14 % (24-48) 12 % (24-48) Monocytes (%) (Auto) 11 % (0-9) 11 % (0-9) Eosinophils (%) (Auto) 1 % (0-3) 0 % (0-3) Basophils (%) (Auto) 0 % (0-3) 0 % (0-3) Neutrophils # (Auto) 7.8 x10^3uL (1.8-7.7) 8.7 x10^3uL (1.8-7.7) Lymphocytes # (Auto) 1.4 x10^3/uL (1.0-4.8) 1.4 x10^3/uL (1.0-4.8) Monocytes # (Auto) 1.2 x10^3/uL (0.0-1.1) 1.2 x10^3/uL (0.0-1.1) Eosinophils # (Auto) 0.1 x10^3/uL (0.0-0.7) 0.0 x10^3/uL (0.0-0.7) Basophils # (Auto) 0.0 x10^3/uL (0.0-0.2) 0.0 x10^3/uL (0.0-0.2) Prothrombin Time 24.1 SEC (11.7-14.0) Prothromb Time International Ratio 2.3 (0.8-1.1) Activated Partial Thromboplast Time 41 SEC (24-38) Sodium Level 128 mmol/L (136-145) 127 mmol/L (136-145) Potassium Level 3.1 mmol/L (3.5-5.1) 3.6 mmol/L (3.5-5.1) Chloride Level 91 mmol/L (98-107) 91 mmol/L (98-107) Carbon Dioxide Level 24 mmol/L (21-32) 21 mmol/L (21-32) Anion Gap 13 (6-14) 15 (6-14) Blood Urea Nitrogen 58 mg/dL (8-26) 67 mg/dL (8-26) Creatinine 2.3 mg/dL (0.7-1.3) 2.3 mg/dL (0.7-1.3) Estimated GFR (Cockcroft-Gault) 29.1 29.1 BUN/Creatinine Ratio 25 (6-20) 29 (6-20) Glucose Level 93 mg/dL (70-99) 93 mg/dL (70-99) Calcium Level 8.5 mg/dL (8.5-10.1) 8.7 mg/dL (8.5-10.1) Total Bilirubin 8.0 mg/dL (0.2-1.0) 9.7 mg/dL (0.2-1.0) Direct Bilirubin 6.1 mg/dL (0.0-0.2) Aspartate Amino Transf (AST/SGOT) 177 U/L (15-37) 157 U/L (15-37) Alanine Aminotransferase (ALT/SGPT) 47 U/L (16-63) 41 U/L (16-63) Alkaline Phosphatase 138 U/L (46-116) 108 U/L (46-116) Total Protein 6.7 g/dL (6.4-8.2) 6.9 g/dL (6.4-8.2) Albumin 2.5 g/dL (3.4-5.0) 3.3 g/dL (3.4-5.0) Albumin/Globulin Ratio 0.6 (1.0-1.7) 0.9 (1.0-1.7) Laboratory Tests Test 11/29/16 07:15 White Blood Count 11.4 x10^3/uL (4.0-11.0) Red Blood Count 3.60 x10^6/uL (4.30-5.70) Hemoglobin 10.2 g/dL (13.0-17.5) Hematocrit 30.0 % (39.0-53.0) Mean Corpuscular Volume 83 fL (79-100) Mean Corpuscular Hemoglobin 28 pg (25-35) Mean Corpuscular Hemoglobin Concent 34 g/dL (31-37) Red Cell Distribution Width 19.1 % (11.5-14.5) Platelet Count 58 x10^3/uL (140-400) Neutrophils (%) (Auto) 77 % (31-73) Lymphocytes (%) (Auto) 12 % (24-48) Monocytes (%) (Auto) 11 % (0-9) Eosinophils (%) (Auto) 0 % (0-3) Basophils (%) (Auto) 0 % (0-3) Neutrophils # (Auto) 8.7 x10^3uL (1.8-7.7) Lymphocytes # (Auto) 1.4 x10^3/uL (1.0-4.8) Monocytes # (Auto) 1.2 x10^3/uL (0.0-1.1) Eosinophils # (Auto) 0.0 x10^3/uL (0.0-0.7) Basophils # (Auto) 0.0 x10^3/uL (0.0-0.2) Sodium Level 127 mmol/L (136-145) Potassium Level 3.6 mmol/L (3.5-5.1) Chloride Level 91 mmol/L (98-107) Carbon Dioxide Level 21 mmol/L (21-32) Anion Gap 15 (6-14) Blood Urea Nitrogen 67 mg/dL (8-26) Creatinine 2.3 mg/dL (0.7-1.3) Estimated GFR (Cockcroft-Gault) 29.1 BUN/Creatinine Ratio 29 (6-20) Glucose Level 93 mg/dL (70-99) Calcium Level 8.7 mg/dL (8.5-10.1) Total Bilirubin 9.7 mg/dL (0.2-1.0) Aspartate Amino Transf (AST/SGOT) 157 U/L (15-37) Alanine Aminotransferase (ALT/SGPT) 41 U/L (16-63) Alkaline Phosphatase 108 U/L (46-116) Total Protein 6.9 g/dL (6.4-8.2) Albumin 3.3 g/dL (3.4-5.0) Albumin/Globulin Ratio 0.9 (1.0-1.7) Medications Current Medications Amino Acids/ Glycerin/ Electrolytes 1,000 ml @ 50 mls/hr Q20H IV Last administered on 11/29/16 00:17; Start 11/28/16 at 03:30 Potassium Chloride (Klor-Con) 40 meq 1X ONCE PO ; Start 11/28/16 at 11:30; Stop 11/28/16 at 16:14; Status DC Allopurinol (Zyloprim) 100 mg DAILY PO Last administered on 11/29/16 08:30; Start 11/28/16 at 12:30 Furosemide (Lasix) 40 mg BID94 PO ; Start 11/28/16 at 12:30; Stop 11/28/16 at 15: 47; Status DC Tamsulosin HCl (Flomax) 0.4 mg BID PO Last administered on 11/29/16 08:30; Start 11/28/16 at 12:30 Metolazone (Zaroxolyn) 5 mg DAILY PO ; Start 11/28/16 at 12:30 Multivitamins (Thera M Plus) 1 tab DAILY PO Last administered on 11/29/16 08: 30; Start 11/28/16 at 12:30 Potassium Chloride (Klor-Con) 10 meq BID94 PO Last administered on 11/29/16 08 :30; Start 11/28/16 at 12:30 Furosemide (Lasix) 20 mg Q6HRS IVP Last administered on 11/29/16 06:15; Start 11/28/16 at 18:00 Albumin Human 200 ml @ 100 mls/hr Q12H IV Last administered on 11/29/16 03:37 ; Start 11/28/16 at 16:00 Potassium Chloride (Klor-Con) 40 meq 1X ONCE PO Last administered on 11/28/16 16:57; Start 11/28/16 at 16:15; Stop 11/28/16 at 16:16; Status DC Oxycodone/ Acetaminophen (Percocet 5/325) 1 tab PRN Q8HRS PRN PO PAIN Last administered on 11/29/16 02:35; Start 11/28/16 at 17:45 Active Scripts Active Cipro (Ciprofloxacin Hcl) 500 Mg Tablet 500 Mg PO BID 7 Days Reported Multivitamins (Multivitamin) 1 Each Tablet 1 Tab PO DAILY Prostate Health Caplet (Saw/Vit E/Sod Ashwini/Lyc/Beta/Pyg) 1 Each Tablet 1 Each PO BID Flomax (Tamsulosin Hcl) 0.4 Mg Cap.er.24h 0.4 Mg PO BID Allopurinol 100 Mg Tablet 1 Tab PO DAILY Metolazone 5 Mg Tablet 5 Mg PO DAILY Furosemide 40 Mg Tablet 40 Mg PO BID Potassium Chloride 10 Meq Capsule.er 10 Meq PO BID Flomax (Tamsulosin Hcl) 0.4 Mg Cap.er.24h 0.8 Mg PO HS Tribenzor 40-10-12.5 Mg Tablet (Olmesartan/Amlodipin/Hcthiazid) 1 Each Tablet 1 Each PO DAILY Vitals/I & O Vital Sign - Last 24 Hours 11/28/16 11/28/16 11/28/16 11/28/16 11:00 15:00 17:59 19:00 Temp 97.6 97.9 98.1 97.6 97.9 98.1 Pulse 93 98 103 Resp 19 19 20 B/P (MAP) 118/84 (95) 90/57 (68) 89/61 (70) Pulse Ox 93 91 90 O2 Delivery Room Air Room Air Room Air Room Air 11/28/16 11/28/16 11/29/16 11/29/16 20:15 23:00 02:35 03:00 Temp 98.2 97.9 98.2 97.9 Pulse 101 103 Resp 20 20 20 B/P (MAP) 110/70 (83) 102/68 (79) Pulse Ox 98 93 97 O2 Delivery Room Air Room Air Room Air Room Air 11/29/16 11/29/16 11/29/16 11/29/16 03:45 06:16 07:11 08:00 Temp 97.5 97.5 Pulse 95 95 Resp 18 20 B/P (MAP) 106/79 (88) 106/79 (88) Pulse Ox 94 92 O2 Delivery Room Air Nasal Cannula Room Air O2 Flow Rate 2.0 11/29/16 08:11 Temp 97.9 97.9 Pulse 94 Resp 17 B/P (MAP) 99/68 (78) Pulse Ox 93 O2 Delivery Room Air Intake and Output 11/28/16 11/28/16 11/29/16 15:00 23:00 07:00 Intake Total 100 ml 200 ml Output Total 1400 ml 600 ml Balance -1300 ml -400 ml PATRICIA CASTAÑEDA MD November 29, 2016 10:42
--- NOTE | 2016-11-29 11:44 | PDOC2 ---
CONSULT Date of Consult Date of Consult DATE: 11/29/16 TIME: 11:37 Reason for Consult Reason for Consult: ANTIONE Referring Physician Referring Physician: HARPER Identification/Chief Complaint Chief Complaint SOB AND SWELLING Source Source: Chart review, Patient History of Present Illness Reason for Visit: THIS IS A 61 YR OLD WITH LE EDEMA AND SWELLING. HE IS NOTED TO HAVE LIVER FAILURE AND ANTIONE WITH A CR OF ABOUT 2.5. HE WAS AT [facility] RECENTLY FOR SIMILAR PROBLEMS AND UNDERWENT EXTENSIVE EVALUATION THERE WITH A TENTATIVE DX OF CIRRHOSIS DUE TO HUFFMAN. ANTIONE THERE WAS DUE TO ATN AND THIS WAS PROVEN WITH A RENAL BIOPSY Past Medical History Hepatobiliary: Cirrhosis Renal/: Acute renal failure Past Surgical History Past Surgical History RENAL BIOPSY Family History Family History: No Significant Social History No ALCOHOL: none Current Medications Current Medications Current Medications Amino Acids/ Glycerin/ Electrolytes 1,000 ml @ 50 mls/hr Q20H IV Last administered on 11/29/16 00:17; Start 11/28/16 at 03:30 Potassium Chloride (Klor-Con) 40 meq 1X ONCE PO ; Start 11/28/16 at 11:30; Stop 11/28/16 at 16:14; Status DC Allopurinol (Zyloprim) 100 mg DAILY PO Last administered on 11/29/16 08:30; Start 11/28/16 at 12:30 Furosemide (Lasix) 40 mg BID94 PO ; Start 11/28/16 at 12:30; Stop 11/28/16 at 15: 47; Status DC Tamsulosin HCl (Flomax) 0.4 mg BID PO Last administered on 11/29/16 08:30; Start 11/28/16 at 12:30 Metolazone (Zaroxolyn) 5 mg DAILY PO ; Start 11/28/16 at 12:30 Multivitamins (Thera M Plus) 1 tab DAILY PO Last administered on 11/29/16 08: 30; Start 11/28/16 at 12:30 Potassium Chloride (Klor-Con) 10 meq BID94 PO Last administered on 11/29/16 08 :30; Start 11/28/16 at 12:30 Furosemide (Lasix) 20 mg Q6HRS IVP Last administered on 11/29/16 06:15; Start 11/28/16 at 18:00 Albumin Human 200 ml @ 100 mls/hr Q12H IV Last administered on 11/29/16 03:37 ; Start 11/28/16 at 16:00 Potassium Chloride (Klor-Con) 40 meq 1X ONCE PO Last administered on 11/28/16 16:57; Start 11/28/16 at 16:15; Stop 11/28/16 at 16:16; Status DC Oxycodone/ Acetaminophen (Percocet 5/325) 1 tab PRN Q8HRS PRN PO PAIN Last administered on 11/29/16 02:35; Start 11/28/16 at 17:45 Active Scripts Active Cipro (Ciprofloxacin Hcl) 500 Mg Tablet 500 Mg PO BID 7 Days Reported Multivitamins (Multivitamin) 1 Each Tablet 1 Tab PO DAILY Prostate Health Caplet (Saw/Vit E/Sod Ashwini/Lyc/Beta/Pyg) 1 Each Tablet 1 Each PO BID Flomax (Tamsulosin Hcl) 0.4 Mg Cap.er.24h 0.4 Mg PO BID Allopurinol 100 Mg Tablet 1 Tab PO DAILY Metolazone 5 Mg Tablet 5 Mg PO DAILY Furosemide 40 Mg Tablet 40 Mg PO BID Potassium Chloride 10 Meq Capsule.er 10 Meq PO BID Flomax (Tamsulosin Hcl) 0.4 Mg Cap.er.24h 0.8 Mg PO HS Tribenzor 40-10-12.5 Mg Tablet (Olmesartan/Amlodipin/Hcthiazid) 1 Each Tablet 1 Each PO DAILY Allergies Allergies: Coded Allergies: No Known Drug Allergies (Unverified , 02/15/16) ROS General: YES: Appetite PSYCHOLOGICAL ROS: YES: Anxiety, Depression Eyes: Yes Decreased vision HEENT: YES: Heacaches Respiratory: YES: Cough Cardiovascular: yes Edema Gastrointestinal: Yes Other (ABD DISTENTION) Genitourinary: YES Other (ANURIA) Musculoskeletal: Yes Muscular Weakness Neurological: Yes Weakness Skin: Yes Dry Skin Physical Exam General: Alert HEENT: Atraumatic Lungs: Other (DECREASED AT BASES) Heart: Regular rate Abdomen: Normal bowel sounds, Other (POS ASCITES) Extremities: Other (3+ EDEMA) Skin: Other (JAUNDICE) Psych/Mental Status: Mental status NL, Mood NL MUSCULOSKELETAL: No deformity Vitals VITALS Vital Signs Date Time Temp Pulse Resp B/P (MAP) Pulse Ox O2 Delivery O2 Flow Rate FiO2 11/29/16 11:00 97.9 97 17 97/70 (79) 92 Nasal Cannula 2.0 97.9 Labs Labs Laboratory Tests Test 11/28/16 02:50 11/28/16 06:40 11/29/16 07:15 Urine Collection Type Unknown Urine Color Kalani Urine Clarity Clear Urine pH 5.5 Urine Specific [place] 1.010 Urine Protein Negative mg/dL (NEG-TRACE) Urine Glucose (UA) Negative mg/dL (NEG) Urine Ketones (Stick) Negative mg/dL (NEG) Urine Blood Small (NEG) Urine Nitrite Negative (NEG) Urine Bilirubin Negative (NEG) Urine Urobilinogen Dipstick 1.0 mg/dL (0.2 mg/dL) Urine Leukocyte Esterase Moderate (NEG) Urine RBC 11-20 /HPF (0-2) Urine WBC Tntc /HPF (0-4) Urine Squamous Epithelial Cells Few /LPF Urine Bacteria Few /HPF (0-FEW) Urine Hyaline Casts Many /HPF Urine Mucus Slight /LPF White Blood Count 10.6 x10^3/uL (4.0-11.0) 11.4 x10^3/uL (4.0-11.0) Red Blood Count 4.28 x10^6/uL (4.30-5.70) 3.60 x10^6/uL (4.30-5.70) Hemoglobin 11.9 g/dL (13.0-17.5) 10.2 g/dL (13.0-17.5) Hematocrit 35.9 % (39.0-53.0) 30.0 % (39.0-53.0) Mean Corpuscular Volume 84 fL (79-100) 83 fL (79-100) Mean Corpuscular Hemoglobin 28 pg (25-35) 28 pg (25-35) Mean Corpuscular Hemoglobin Concent 33 g/dL (31-37) 34 g/dL (31-37) Red Cell Distribution Width 18.4 % (11.5-14.5) 19.1 % (11.5-14.5) Platelet Count 62 x10^3/uL (140-400) 58 x10^3/uL (140-400) Neutrophils (%) (Auto) 74 % (31-73) 77 % (31-73) Lymphocytes (%) (Auto) 14 % (24-48) 12 % (24-48) Monocytes (%) (Auto) 11 % (0-9) 11 % (0-9) Eosinophils (%) (Auto) 1 % (0-3) 0 % (0-3) Basophils (%) (Auto) 0 % (0-3) 0 % (0-3) Neutrophils # (Auto) 7.8 x10^3uL (1.8-7.7) 8.7 x10^3uL (1.8-7.7) Lymphocytes # (Auto) 1.4 x10^3/uL (1.0-4.8) 1.4 x10^3/uL (1.0-4.8) Monocytes # (Auto) 1.2 x10^3/uL (0.0-1.1) 1.2 x10^3/uL (0.0-1.1) Eosinophils # (Auto) 0.1 x10^3/uL (0.0-0.7) 0.0 x10^3/uL (0.0-0.7) Basophils # (Auto) 0.0 x10^3/uL (0.0-0.2) 0.0 x10^3/uL (0.0-0.2) Prothrombin Time 24.1 SEC (11.7-14.0) Prothromb Time International Ratio 2.3 (0.8-1.1) Activated Partial Thromboplast Time 41 SEC (24-38) Sodium Level 128 mmol/L (136-145) 127 mmol/L (136-145) Potassium Level 3.1 mmol/L (3.5-5.1) 3.6 mmol/L (3.5-5.1) Chloride Level 91 mmol/L (98-107) 91 mmol/L (98-107) Carbon Dioxide Level 24 mmol/L (21-32) 21 mmol/L (21-32) Anion Gap 13 (6-14) 15 (6-14) Blood Urea Nitrogen 58 mg/dL (8-26) 67 mg/dL (8-26) Creatinine 2.3 mg/dL (0.7-1.3) 2.3 mg/dL (0.7-1.3) Estimated GFR (Cockcroft-Gault) 29.1 29.1 BUN/Creatinine Ratio 25 (6-20) 29 (6-20) Glucose Level 93 mg/dL (70-99) 93 mg/dL (70-99) Calcium Level 8.5 mg/dL (8.5-10.1) 8.7 mg/dL (8.5-10.1) Total Bilirubin 8.0 mg/dL (0.2-1.0) 9.7 mg/dL (0.2-1.0) Direct Bilirubin 6.1 mg/dL (0.0-0.2) Aspartate Amino Transf (AST/SGOT) 177 U/L (15-37) 157 U/L (15-37) Alanine Aminotransferase (ALT/SGPT) 47 U/L (16-63) 41 U/L (16-63) Alkaline Phosphatase 138 U/L (46-116) 108 U/L (46-116) Total Protein 6.7 g/dL (6.4-8.2) 6.9 g/dL (6.4-8.2) Albumin 2.5 g/dL (3.4-5.0) 3.3 g/dL (3.4-5.0) Albumin/Globulin Ratio 0.6 (1.0-1.7) 0.9 (1.0-1.7) Laboratory Tests Test 11/29/16 07:15 White Blood Count 11.4 x10^3/uL (4.0-11.0) Red Blood Count 3.60 x10^6/uL (4.30-5.70) Hemoglobin 10.2 g/dL (13.0-17.5) Hematocrit 30.0 % (39.0-53.0) Mean Corpuscular Volume 83 fL (79-100) Mean Corpuscular Hemoglobin 28 pg (25-35) Mean Corpuscular Hemoglobin Concent 34 g/dL (31-37) Red Cell Distribution Width 19.1 % (11.5-14.5) Platelet Count 58 x10^3/uL (140-400) Neutrophils (%) (Auto) 77 % (31-73) Lymphocytes (%) (Auto) 12 % (24-48) Monocytes (%) (Auto) 11 % (0-9) Eosinophils (%) (Auto) 0 % (0-3) Basophils (%) (Auto) 0 % (0-3) Neutrophils # (Auto) 8.7 x10^3uL (1.8-7.7) Lymphocytes # (Auto) 1.4 x10^3/uL (1.0-4.8) Monocytes # (Auto) 1.2 x10^3/uL (0.0-1.1) Eosinophils # (Auto) 0.0 x10^3/uL (0.0-0.7) Basophils # (Auto) 0.0 x10^3/uL (0.0-0.2) Sodium Level 127 mmol/L (136-145) Potassium Level 3.6 mmol/L (3.5-5.1) Chloride Level 91 mmol/L (98-107) Carbon Dioxide Level 21 mmol/L (21-32) Anion Gap 15 (6-14) Blood Urea Nitrogen 67 mg/dL (8-26) Creatinine 2.3 mg/dL (0.7-1.3) Estimated GFR (Cockcroft-Gault) 29.1 BUN/Creatinine Ratio 29 (6-20) Glucose Level 93 mg/dL (70-99) Calcium Level 8.7 mg/dL (8.5-10.1) Total Bilirubin 9.7 mg/dL (0.2-1.0) Aspartate Amino Transf (AST/SGOT) 157 U/L (15-37) Alanine Aminotransferase (ALT/SGPT) 41 U/L (16-63) Alkaline Phosphatase 108 U/L (46-116) Total Protein 6.9 g/dL (6.4-8.2) Albumin 3.3 g/dL (3.4-5.0) Albumin/Globulin Ratio 0.9 (1.0-1.7) Assessment/Plan Assessment/Plan IMP LIVER FAILURE PROB HUFFMAN ASCITES EDEMA JAUNDICE THROMBOCYTOPENIA ANTIONE-ATN BX PROVEN AT [facility] PLAN DIURESIS IV LASIX SPA SCHEDULED STOP ZAROXOLYN ADD ALDACTONE GI EVAL AND TX LOW FLOW PPN MAY NEED THERAPEUTIC PARACENTESIS MERCEDES PEREYRA MD November 29, 2016 11:44
[2016-11-29] MEDS: SPIRONOLACTONE 25 MG TABLET PO SCH (12:22)
--- NOTE | 2016-11-29 14:57 | PDOC ---
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 portal vein thrombosis-- None seen on outside imaging when liver changes, coagulopathy present. Doubt acute/ present. Asymptomatic with only discomfort from tense ascites. No anticoagulation recommended. Coagulopathy due to liver disease CKD KUN SUAREZ DO November 29, 2016 14:57
[2016-11-30 00:30] VITALS: BP 102/74
[2016-11-30] MEDS: AMINO AC 3%/ELECTROLYTE/GLYCER 1,000 ML IV SCH (00:52)
[2016-11-30] MEDS: FUROSEMIDE 20 MG/2 ML VIAL. IVP SCH ×2 (00:58→06:22)
[2016-11-30] MEDS: oxyCODONE/APAP 5/325 1 TAB TABLET PO PRN (02:08)
[2016-11-30 03:08] VITALS: BP 101/67
[2016-11-30] MEDS: ALBUMIN HUMAN 25% 200 ML IV SCH ×2 (03:43→15:50)
[2016-11-30 04:53] LABS: ALBUMIN 3.1 g/dL (3.4-5.0); ALBUMIN/GLOBULIN RATIO 0.9 (1.0-1.7); CALCIUM 8.6 mg/dL (8.5-10.1); CREATININE 2.2 mg/dL (0.7-1.3); GFR 30.6; POTASSIUM 3.5 mmol/L (3.5-5.1); TOTAL BILIRUBIN 9.3 mg/dL (0.2-1.0); TOTAL PROTEIN 6.4 g/dL (6.4-8.2)
[2016-11-30 06:17] VITALS: BP 102/74
[2016-11-30] MEDS: POTASSIUM CHLORIDE 10 MEQ TABLET.ER. PO SCH ×2 (09:05→15:50)
[2016-11-30] MEDS: TAMSULOSIN 0.4 MG CAP.ER.24H. PO SCH (09:05)
[2016-11-30] MEDS: ALLOPURINOL 100 MG TABLET. PO SCH (09:05)
[2016-11-30] MEDS: MULTIVITAMIN with MINERAL TABLET. PO SCH (09:05)
[2016-11-30] MEDS: SPIRONOLACTONE 25 MG TABLET PO SCH (09:05)
--- NOTE | 2016-11-30 09:42 | CONS ---
DATE OF CONSULTATION: 11/29/2016 REFERRING PROVIDER: Eduardo Loera M.D. REASON FOR CONSULTATION: Portal vein thrombosis. HISTORY OF PRESENT ILLNESS: The patient is a 61-year-old male who was recently admitted at [facility] for acute kidney failure. He had been hospitalized there previously at the end of September for cystoscopy with resection of bladder neck contracture on 10/12/2016, but had a prolonged stay due to renal failure, status post renal biopsy ultimately consistent with acute tubular necrosis. His renal function improved. While there, he was noted to have some transaminitis with an AST and ALT around 200, bilirubin near 2. Hepatitis panel negative. Abdominal ultrasound there on 10/23/2016 showed mild hepatomegaly and diffuse fatty liver, small amount of ascites. There was no evidence of any portal vein thrombosis. He was thought to have some component of HUFFMAN. His INR was noted to be elevated at 1.7. He was placed on diuretics. He presents to the hospital here now with jaundice, acute worsening of the transaminitis with bilirubin now 9.7, AST has actually improved to 157, ALT has now normalized at 41. Creatinine remains elevated at 2.3, sodium of 128. He has significant ascites and worsening lower extremity edema. Abdominal ultrasound showed a heterogenous nodular liver consistent with cirrhosis. No clear liver mass was found. There was also associated splenomegaly. Evaluation for portal vein thrombosis was not clear, but there was no definitive flow through the portal vein or within the upper IVC. CT with contrast was recommended for further evaluation, but cannot be performed due to his renal function. We are consulted for anticoagulation recommendations. PAST MEDICAL HISTORY: Recent ATN, BPH, newly-diagnosed HUFFMAN. PAST SURGICAL HISTORY: TURP at the end of September. FAMILY HISTORY: Dad had BPH as well. No other significant family history. SOCIAL HISTORY: Denies tobacco, alcohol or drug use. ALLERGIES: No known drug allergies. CURRENT MEDICATIONS: Spironolactone, Lasix, Percocet, albumin, potassium chloride, multivitamin, Flomax, allopurinol. REVIEW OF SYSTEMS: Ten-point review of systems completed and unremarkable with the exception of the jaundice, lower extremity swelling, ascites causing some diffuse abdominal pain as above. PHYSICAL EXAMINATION: VITAL SIGNS: Temperature 97.9, pulse 97, respiratory rate 17, blood pressure 97/70, O2 92% on 2 liters. GENERAL: He is alert and oriented, in no distress. HEENT: Scleral icterus present. Mucous membranes are moist. CARDIOVASCULAR: Heart is regular in rhythm and rate. LUNGS: Clear to auscultation bilaterally. ABDOMEN: Tense from significant ascites. EXTREMITIES: 2+ edema in bilateral lower extremities. SKIN: Jaundice present. NEUROLOGIC: No focal deficits. IMAGING AND LABORATORY DATA: Pertinent outside records reviewed as above. Pertinent current admission records also reviewed as above. ASSESSMENT AND PLAN: The patient is a 61-year-old male with the following medical problems: 1. Cirrhosis due to nonalcoholic steatohepatitis. GI is following and evaluation is underway. He has had worsening ascites and may need a paracentesis. The diagnosis of cirrhosis was indeed present on his admission at [facility] last month. 2. Question of portal vein thrombosis. The imaging here was not clear. However, one month ago at [facility], there was not a portal vein thrombosis noted. He has had chronic cirrhotic changes with coagulopathy which can commonly be associated with portal vein clots. It is not clear that he truly has a portal vein clot and is not symptomatic with acute pain (diffuse discomfort at this time seems more related to his ascites). Therefore, I would not recommend anticoagulation. 3. Hyponatremia, coagulopathy. All due to his underlying cirrhosis. 4. Chronic kidney disease. Thank you for allowing me to participate in his care. KUN SUAREZ DO DR: ROCKY/екатерина JOB#: [id number] / [id number]
--- NOTE | 2016-11-30 10:38 | PDOC ---
Renal-Progress Notes Subjective Notes Notes NONE History of Present Illness Hx of present illness STABLE Vitals Vitals Vital Signs Date Time Temp Pulse Resp B/P (MAP) Pulse Ox O2 Delivery O2 Flow Rate FiO2 11/30/16 08:00 Room Air 11/30/16 06:17 96.8 94 20 102/74 (83) 90.0 96.8 11/30/16 03:15 94 Weight Weight [ ] I.O. Intake and Output Intake and Output 11/30/16 07:00 Intake Total 1220 ml Output Total 1300 ml Balance -80 ml Intake Oral 1220 ml Output Urine Total 1300 ml # Bowel Movements 2 Labs Labs Laboratory Tests Test 11/30/16 03:35 Sodium Level 125 mmol/L (136-145) Potassium Level 3.5 mmol/L (3.5-5.1) Chloride Level 89 mmol/L (98-107) Carbon Dioxide Level 22 mmol/L (21-32) Anion Gap 14 (6-14) Blood Urea Nitrogen 77 mg/dL (8-26) Creatinine 2.2 mg/dL (0.7-1.3) Estimated GFR (Cockcroft-Gault) 30.6 BUN/Creatinine Ratio 35 (6-20) Glucose Level 106 mg/dL (70-99) Calcium Level 8.6 mg/dL (8.5-10.1) Total Bilirubin 9.3 mg/dL (0.2-1.0) Aspartate Amino Transf (AST/SGOT) 168 U/L (15-37) Alanine Aminotransferase (ALT/SGPT) 44 U/L (16-63) Alkaline Phosphatase 97 U/L (46-116) Total Protein 6.4 g/dL (6.4-8.2) Albumin 3.1 g/dL (3.4-5.0) Albumin/Globulin Ratio 0.9 (1.0-1.7) Review of Systems Constitutional: yes: weakness, alert Ears/Nose/Throat: Yes: no symptom reported Eyes: Yes: no symptom reported Pulmonary: Yes no symptom reported Gastrointestional: Yes: other (ASCITES) Genitourinary: Yes: no symptom reported Musculoskeletal: Yes: muscle stiffness Skin: Yes no symptom reported Physical Exam General Appearance: no apparent distress Skin: warm Respiratory: decreased breath sounds Heart: S1S2 Abdomen: soft, distension Extremities: edema Neurology: alert Assessment Assessment IMP LIVER CIRRHOSIS ANTIONE DUE TO ATN-STABLE ANEMIA EDEMA ASCITES PLAN CONT WITH SPA INCREASE LASIX CONT ALDACTONE LABS IN AM MERCEDES PEREYRA MD November 30, 2016 10:38
[2016-11-30 11:00] VITALS: BP 109/67
[2016-11-30] MEDS: FUROSEMIDE 40 MG/4 ML VIAL. IVP SCH ×2 (11:57→17:57)
--- NOTE | 2016-11-30 11:59 | PDOC ---
PROGRESS NOTES Chief Complaint Chief Complaint cc: sob and leg swellings 1. 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 Jaundice, obstructive pattern. 3. Acute renal failure. 4. Hypokalemia 5. Thrombocytopenia. 6. Coagulopathy likely due to liver disease. History of Present Illness History of Present Illness IV diuresis with albumin off Metolazone Aldactone worsening renal functions , Bili going up PT/OT intake and out put GI and renal following Prognosis guarded, d/w Dr king Vitals Vitals Vital Signs Date Time Temp Pulse Resp B/P (MAP) Pulse Ox O2 Delivery O2 Flow Rate FiO2 11/30/16 08:00 Room Air 11/30/16 06:17 96.8 94 20 102/74 (83) 90.0 96.8 11/30/16 03:15 94 Physical Exam General: Alert, Oriented X3, No acute distress Heart: Normal S1, Normal S2 Lungs: Clear Abdomen: Other (tense and distended) Extremities: No clubbing, Other Skin: No breakdown Labs LABS Laboratory Tests Test 11/30/16 03:35 Sodium Level 125 mmol/L (136-145) Potassium Level 3.5 mmol/L (3.5-5.1) Chloride Level 89 mmol/L (98-107) Carbon Dioxide Level 22 mmol/L (21-32) Anion Gap 14 (6-14) Blood Urea Nitrogen 77 mg/dL (8-26) Creatinine 2.2 mg/dL (0.7-1.3) Estimated GFR (Cockcroft-Gault) 30.6 BUN/Creatinine Ratio 35 (6-20) Glucose Level 106 mg/dL (70-99) Calcium Level 8.6 mg/dL (8.5-10.1) Total Bilirubin 9.3 mg/dL (0.2-1.0) Aspartate Amino Transf (AST/SGOT) 168 U/L (15-37) Alanine Aminotransferase (ALT/SGPT) 44 U/L (16-63) Alkaline Phosphatase 97 U/L (46-116) Total Protein 6.4 g/dL (6.4-8.2) Albumin 3.1 g/dL (3.4-5.0) Albumin/Globulin Ratio 0.9 (1.0-1.7) Review of Systems Review of Systems no n.v.d Assessment and Plan Assessmemt and Plan discuss care with Renal and GI Problems: Comment Review of Relevant I have reviewed the following items rufina (where applicable) has been applied. Labs Laboratory Tests Test 11/29/16 07:15 11/30/16 03:35 White Blood Count 11.4 x10^3/uL (4.0-11.0) Red Blood Count 3.60 x10^6/uL (4.30-5.70) Hemoglobin 10.2 g/dL (13.0-17.5) Hematocrit 30.0 % (39.0-53.0) Mean Corpuscular Volume 83 fL (79-100) Mean Corpuscular Hemoglobin 28 pg (25-35) Mean Corpuscular Hemoglobin Concent 34 g/dL (31-37) Red Cell Distribution Width 19.1 % (11.5-14.5) Platelet Count 58 x10^3/uL (140-400) Neutrophils (%) (Auto) 77 % (31-73) Lymphocytes (%) (Auto) 12 % (24-48) Monocytes (%) (Auto) 11 % (0-9) Eosinophils (%) (Auto) 0 % (0-3) Basophils (%) (Auto) 0 % (0-3) Neutrophils # (Auto) 8.7 x10^3uL (1.8-7.7) Lymphocytes # (Auto) 1.4 x10^3/uL (1.0-4.8) Monocytes # (Auto) 1.2 x10^3/uL (0.0-1.1) Eosinophils # (Auto) 0.0 x10^3/uL (0.0-0.7) Basophils # (Auto) 0.0 x10^3/uL (0.0-0.2) Sodium Level 127 mmol/L (136-145) 125 mmol/L (136-145) Potassium Level 3.6 mmol/L (3.5-5.1) 3.5 mmol/L (3.5-5.1) Chloride Level 91 mmol/L (98-107) 89 mmol/L (98-107) Carbon Dioxide Level 21 mmol/L (21-32) 22 mmol/L (21-32) Anion Gap 15 (6-14) 14 (6-14) Blood Urea Nitrogen 67 mg/dL (8-26) 77 mg/dL (8-26) Creatinine 2.3 mg/dL (0.7-1.3) 2.2 mg/dL (0.7-1.3) Estimated GFR (Cockcroft-Gault) 29.1 30.6 BUN/Creatinine Ratio 29 (6-20) 35 (6-20) Glucose Level 93 mg/dL (70-99) 106 mg/dL (70-99) Calcium Level 8.7 mg/dL (8.5-10.1) 8.6 mg/dL (8.5-10.1) Total Bilirubin 9.7 mg/dL (0.2-1.0) 9.3 mg/dL (0.2-1.0) Aspartate Amino Transf (AST/SGOT) 157 U/L (15-37) 168 U/L (15-37) Alanine Aminotransferase (ALT/SGPT) 41 U/L (16-63) 44 U/L (16-63) Alkaline Phosphatase 108 U/L (46-116) 97 U/L (46-116) Total Protein 6.9 g/dL (6.4-8.2) 6.4 g/dL (6.4-8.2) Albumin 3.3 g/dL (3.4-5.0) 3.1 g/dL (3.4-5.0) Albumin/Globulin Ratio 0.9 (1.0-1.7) 0.9 (1.0-1.7) Laboratory Tests Test 11/30/16 03:35 Sodium Level 125 mmol/L (136-145) Potassium Level 3.5 mmol/L (3.5-5.1) Chloride Level 89 mmol/L (98-107) Carbon Dioxide Level 22 mmol/L (21-32) Anion Gap 14 (6-14) Blood Urea Nitrogen 77 mg/dL (8-26) Creatinine 2.2 mg/dL (0.7-1.3) Estimated GFR (Cockcroft-Gault) 30.6 BUN/Creatinine Ratio 35 (6-20) Glucose Level 106 mg/dL (70-99) Calcium Level 8.6 mg/dL (8.5-10.1) Total Bilirubin 9.3 mg/dL (0.2-1.0) Aspartate Amino Transf (AST/SGOT) 168 U/L (15-37) Alanine Aminotransferase (ALT/SGPT) 44 U/L (16-63) Alkaline Phosphatase 97 U/L (46-116) Total Protein 6.4 g/dL (6.4-8.2) Albumin 3.1 g/dL (3.4-5.0) Albumin/Globulin Ratio 0.9 (1.0-1.7) Medications Current Medications Amino Acids/ Glycerin/ Electrolytes 1,000 ml @ 50 mls/hr Q20H IV Last administered on 11/30/16 00:52; Start 11/28/16 at 03:30 Potassium Chloride (Klor-Con) 40 meq 1X ONCE PO ; Start 11/28/16 at 11:30; Stop 11/28/16 at 16:14; Status DC Allopurinol (Zyloprim) 100 mg DAILY PO Last administered on 11/30/16 09:05; Start 11/28/16 at 12:30 Furosemide (Lasix) 40 mg BID94 PO ; Start 11/28/16 at 12:30; Stop 11/28/16 at 15: 47; Status DC Tamsulosin HCl (Flomax) 0.4 mg BID PO Last administered on 11/30/16 09:05; Start 11/28/16 at 12:30 Metolazone (Zaroxolyn) 5 mg DAILY PO ; Start 11/28/16 at 12:30; Stop 11/29/16 at 11:45; Status DC Multivitamins (Thera M Plus) 1 tab DAILY PO Last administered on 11/30/16 09: 05; Start 11/28/16 at 12:30 Potassium Chloride (Klor-Con) 10 meq BID94 PO Last administered on 11/30/16 09 :05; Start 11/28/16 at 12:30 Furosemide (Lasix) 20 mg Q6HRS IVP Last administered on 11/30/16 06:22; Start 11/28/16 at 18:00; Stop 11/30/16 at 10:39; Status DC Albumin Human 200 ml @ 100 mls/hr Q12H IV Last administered on 11/30/16 03:43 ; Start 11/28/16 at 16:00 Potassium Chloride (Klor-Con) 40 meq 1X ONCE PO Last administered on 11/28/16 16:57; Start 11/28/16 at 16:15; Stop 11/28/16 at 16:16; Status DC Oxycodone/ Acetaminophen (Percocet 5/325) 1 tab PRN Q8HRS PRN PO PAIN Last administered on 11/30/16 02:08; Start 11/28/16 at 17:45 Spironolactone (Aldactone) 25 mg DAILY PO Last administered on 11/30/16 09:05 ; Start 11/29/16 at 12:00 Furosemide (Lasix) 40 mg Q6HRS IVP Last administered on 11/30/16 11:57; Start 11/30/16 at 12:00 Active Scripts Active Cipro (Ciprofloxacin Hcl) 500 Mg Tablet 500 Mg PO BID 7 Days Reported Multivitamins (Multivitamin) 1 Each Tablet 1 Tab PO DAILY Prostate Health Caplet (Saw/Vit E/Sod Ashwini/Lyc/Beta/Pyg) 1 Each Tablet 1 Each PO BID Flomax (Tamsulosin Hcl) 0.4 Mg Cap.er.24h 0.4 Mg PO BID Allopurinol 100 Mg Tablet 1 Tab PO DAILY Metolazone 5 Mg Tablet 5 Mg PO DAILY Furosemide 40 Mg Tablet 40 Mg PO BID Potassium Chloride 10 Meq Capsule.er 10 Meq PO BID Flomax (Tamsulosin Hcl) 0.4 Mg Cap.er.24h 0.8 Mg PO HS Tribenzor 40-10-12.5 Mg Tablet (Olmesartan/Amlodipin/Hcthiazid) 1 Each Tablet 1 Each PO DAILY Vitals/I & O Vital Sign - Last 24 Hours 11/29/16 11/29/16 11/29/16 11/29/16 12:27 15:16 19:00 20:00 Temp 97.7 97.0 97.7 97.0 Pulse 95 95 Resp 16 20 B/P (MAP) 98/74 (82) 117/76 (90) Pulse Ox 92 91 O2 Delivery Room Air Room Air Room Air Nasal Cannula O2 Flow Rate 2.0 11/29/16 11/30/16 11/30/16 11/30/16 23:00 00:30 02:08 03:08 Temp 97.7 97.7 97.7 97.7 Pulse 84 94 98 Resp 20 20 20 B/P (MAP) 92/63 (73) 102/74 (83) 101/67 (78) Pulse Ox 94 92 92 O2 Delivery Room Air Room Air Nasal Cannula 11/30/16 11/30/16 11/30/16 03:15 06:17 08:00 Temp 96.8 96.8 Pulse 94 Resp 18 20 B/P (MAP) 102/74 (83) Pulse Ox 94 O2 Delivery Nasal Cannula Room Air Room Air O2 Flow Rate 2.0 90.0 Intake and Output 11/29/16 11/29/16 11/30/16 15:00 23:00 07:00 Intake Total 120 ml 800 ml 300 ml Output Total 350 ml 350 ml 600 ml Balance -230 ml 450 ml -300 ml CHA BUTLER MD November 30, 2016 11:59
--- NOTE | 2016-11-30 12:00 | PDOC ---
Subjective: Subjective: Swelling uncomfortable. Objective: Objective: Reviewed nephrology and hematology notes. Vital Signs: Vital Signs Date Time Temp Pulse Resp B/P (MAP) Pulse Ox O2 Delivery O2 Flow Rate FiO2 11/30/16 08:00 Room Air 11/30/16 06:17 96.8 94 20 102/74 (83) 90.0 96.8 11/30/16 03:15 94 Labs: Laboratory Tests Test 11/30/16 03:35 Sodium Level 125 mmol/L Potassium Level 3.5 mmol/L Chloride Level 89 mmol/L Carbon Dioxide Level 22 mmol/L Anion Gap 14 Blood Urea Nitrogen 77 mg/dL Creatinine 2.2 mg/dL Estimated GFR (Cockcroft-Gault) 30.6 BUN/Creatinine Ratio 35 Glucose Level 106 mg/dL Calcium Level 8.6 mg/dL Total Bilirubin 9.3 mg/dL Aspartate Amino Transf (AST/SGOT) 168 U/L Alanine Aminotransferase (ALT/SGPT) 44 U/L Alkaline Phosphatase 97 U/L Total Protein 6.4 g/dL Albumin 3.1 g/dL Albumin/Globulin Ratio 0.9 PE: GEN: NAD, up to chair LUNGS: CTAB anteriorly HEART: RRR ABD: distended/tight EXTREM: BLE pitting edema NEURO/PSYCH: A & O 3 A/P: Chronic liver disease, ascites, anasarca -bili 9.3 -on Lasix, Aldactone -previous workup at [facility] (per GI consult note 11/28) ANTIONE -- D/w Dr. Santoyo, MELD 32. Will ask for paracentesis. Will review w/ . JULIANA RIOS November 30, 2016 12:00
[2016-11-30 13:35] LABS: INR 2.8 (0.8-1.1); PROTHROMBIN TIME PATIENT 27.9 SEC (11.7-14.0)
[2016-11-30] MEDS ORDERED: PHYTONADIONE (VIT K1) 10 MG in IV NORMAL SALINE 50ML 50 ML IV ONE (13:45)
[2016-11-30] MEDS ORDERED: PHYTONADIONE 10 MG/ML AMPUL. SQ ONE (14:45)
[2016-11-30 15:00] VITALS: BP 120/68
== END 2016-11-30 19:00 | disposition short-term general hospital (02) | DRG 444 ==
LOC: 5 NORTH 02:05
PROVIDERS: ADMIT Internal Medicine; ATTEND Internal Medicine
DX: K83.1 Obstruction of bile duct (principal); N17.0 Acute kidney failure with tubular necrosis; I81 Portal vein thrombosis; D68.4 Acquired coagulation factor deficiency; R18.8 Other ascites; E87.1 Hypo-osmolality and hyponatremia; D69.6 Thrombocytopenia, unspecified; N40.0 Benign prostatic hyperplasia without lower urinary tract symptoms; E87.6 Hypokalemia; R74.8 Abnormal levels of other serum enzymes; K74.60 Unspecified cirrhosis of liver; K72.90 Hepatic failure, unspecified without coma; D64.9 Anemia, unspecified; N18.9 Chronic kidney disease, unspecified; K75.81 Nonalcoholic steatohepatitis (NASH); R74.0 Nonspecific elevation of levels of transaminase and lactic acid dehydrogenase [LDH]
CPT/HCPCS: 36415; 80053; 80076; 81001; 85027; 85610; 85730; 87086; 93975; J0696; J1940; J3430; P9046; 97110; 97116; 97535